=== PATIENT | male | born 2000 | race Caucasian/White ===

== ENCOUNTER 2023-02-19 15:37 | Emergency (ER) | payer SELFPAY ==
[2023-02-19] MEDS ORDERED: Lidocaine 1% 5 ML VIAL INJECT ONE (15:50)
[2023-02-19] MEDS ORDERED: Diphtheria,Pertussis(Acell),Tetanus Vaccine 0.5 ML Syringe IM ONE (17:15)
== END 2023-02-19 17:56 | disposition home or self-care (01) ==
LOC: LL.ED 15:37
DX: S61.217A Laceration without foreign body of left little finger without damage to nail, initial encounter (principal); Z23 Encounter for immunization; W26.8XXA Contact with other sharp object(s), not elsewhere classified, initial encounter; Y99.0 Civilian activity done for income or pay
CPT/HCPCS: 12001; 90471; 90715; 99282-25; J3490